=== PATIENT | female | born 1945 | race Caucasian/White ===

== ENCOUNTER 2019-01-23 22:30 | Observation (INO) | payer MEDICARE, SELFPAY ==
[2019-01-23 22:40] VITALS: O2SAT 95
[2019-01-23 22:48] VITALS: PULSE 67
--- NOTE | 2019-01-23 22:52 | PCM.HP.STD ---
Problem List (1) Chest pain Status: Acute Qualifiers: Chest pain type: unspecified Qualified Code(s): R07.9 - Chest pain, unspecified (2) Diabetes Status: Chronic Qualifiers: Diabetes mellitus type: type 2 (3) Hypertension Status: Chronic (4) Hyperlipidemia Status: Chronic History of Present Illness Date of Admission: 01/23/19 Chief Complaint: chest pain The patient is a 73 year old female patient with a significant past medical history of diabetes for 20 years, hypertension, hyperlipidemia. Patient presented with chest pain that radiated to her right shoulder occurring earlier today. The pain was made worse with exertion as she was walking up the stairs and was also associated with shortness of breath. Initial troponin was negative at the [facility] emergency room. He and BMP were unremarkable as well as chest x-ray was negative. The patient states she has had a stress test in the remote past history but cannot remember when. Due to dyspnea upon exertion and associated chest pain with history of hyperlipidemia diabetes and hypertension patient will be admitted for observation and ruled out for cardiac disease. Past Medical History Past Medical History (Chronic Problems): Chronic Problems Diabetes (Chronic) Hypertension (Chronic) Hyperlipidemia (Chronic) Surgical History: no surgical history Smoking Status: Former smoker - *Family History Maternal History Items: No pertinent history Review of Systems Constitutional: Denies: Chills, Fever, Weight Change HEENT: Denies: Head Aches, Sinus Congestion, Sinus Drainage Cardiovascular: Reports: Chest Pain, Heaviness. Denies: Palpitations Respiratory: Reports: Shortness of breath upon exertion. Denies: Cough, Shortness of breath at rest, Sputum production Gastrointestinal: Denies: Abdominal Pain, Nausea, Vomiting Genitourinary: Denies: Dysuria Musculoskeletal: Denies: Joint Pain, Joint Tenderness Skin: Denies: Rash, Wounds Neurological: Denies: Numbness, Tingling, Focal weakness Psychiatric: Denies: Anxiety, Depression, Homicidal Ideations, Suicidal Ideations Hematologic/ Lymphatic: Denies: Easy Bruising, Easy Bleeding VTE Information - Inpt Only VTE Present on Admission: No VTE Mechan Device Prophylaxis: None VTE Pharm Prophylaxis ordered?: Yes Patient Problems: Active and Suspected Problems Chest pain (Acute) - Physical Exam General: Alert, Oriented x3, Cooperative HEENT: Atraumatic, Normocephalic Neck: Supple, No JVD Lungs: Clear to auscultation, Normal air movement, No rhonchi, No wheeze, No rales Cardiovascular: Regular rate, Normal S1, Normal S2, No murmurs Abdomen: Bowel Sounds Present, Soft, Non Tender Extremities: No edema Skin: No rashes Musculoskeletal: No Tenderness to Palpation of Joints or Extremities Neurological: Neuro grossly intact Psych/Mental Status: Normal Affect, Appropriate Assessment/Plan All Active Problems Chest pain (Acute) Chronic Problems Diabetes (Chronic) Hypertension (Chronic) Hyperlipidemia (Chronic) Plan 1. Chest pain rule out [place]?patient to progressive care unit cycle troponins, morphine nitro oxygen and aspirin per protocol. Nuclear exercise stress test in the morning, CBC BMP in the morning 2. diabetes?continue current medication line 3. hypertension continue home medication 4. Hyperlipidemia check fasting lipid profile maintain on statin 5. DVT prophylaxis Lovenox 40 mg subcu daily Code Visit OBSV E&M: 63485 Initial observation care L2
--- NOTE | 2019-01-23 22:56 | HP.PCM_ITS ---
Problem List (1) Chest pain Status: Acute Qualifiers: Chest pain type: unspecified Qualified Code(s): R07.9 - Chest pain, unspecified (2) Diabetes Status: Chronic Qualifiers: Diabetes mellitus type: type 2 (3) Hypertension Status: Chronic (4) Hyperlipidemia Status: Chronic History of Present Illness Date of Admission: 01/23/19 Chief Complaint: chest pain The patient is a 73 year old female patient with a significant past medical history of diabetes for 20 years, hypertension, hyperlipidemia. Patient presented with chest pain that radiated to her right shoulder occurring earlier today. The pain was made worse with exertion as she was walking up the stairs and was also associated with shortness of breath. Initial troponin was negative at the [facility] emergency room. He and BMP were unremarkable as well as chest x-ray was negative. The patient states she has had a stress test in the remote past history but cannot remember when. Due to dyspnea upon exertion and associated chest pain with history of hyperlipidemia diabetes and hypertension patient will be admitted for observation and ruled out for cardiac disease. Past Medical History Past Medical History (Chronic Problems): Chronic Problems Diabetes (Chronic) Hypertension (Chronic) Hyperlipidemia (Chronic) Surgical History: no surgical history Smoking Status: Former smoker - *Family History Maternal History Items: No pertinent history Review of Systems Constitutional: Denies: Chills, Fever, Weight Change HEENT: Denies: Head Aches, Sinus Congestion, Sinus Drainage Cardiovascular: Reports: Chest Pain, Heaviness. Denies: Palpitations Respiratory: Reports: Shortness of breath upon exertion. Denies: Cough, Shortness of breath at rest, Sputum production Gastrointestinal: Denies: Abdominal Pain, Nausea, Vomiting Genitourinary: Denies: Dysuria Musculoskeletal: Denies: Joint Pain, Joint Tenderness Skin: Denies: Rash, Wounds Neurological: Denies: Numbness, Tingling, Focal weakness Psychiatric: Denies: Anxiety, Depression, Homicidal Ideations, Suicidal Ideations Hematologic/ Lymphatic: Denies: Easy Bruising, Easy Bleeding VTE Information - Inpt Only VTE Present on Admission: No VTE Mechan Device Prophylaxis: None VTE Pharm Prophylaxis ordered?: Yes Patient Problems: Active and Suspected Problems Chest pain (Acute) - Physical Exam General: Alert, Oriented x3, Cooperative HEENT: Atraumatic, Normocephalic Neck: Supple, No JVD Lungs: Clear to auscultation, Normal air movement, No rhonchi, No wheeze, No rales Cardiovascular: Regular rate, Normal S1, Normal S2, No murmurs Abdomen: Bowel Sounds Present, Soft, Non Tender Extremities: No edema Skin: No rashes Musculoskeletal: No Tenderness to Palpation of Joints or Extremities Neurological: Neuro grossly intact Psych/Mental Status: Normal Affect, Appropriate Assessment/Plan All Active Problems Chest pain (Acute) Chronic Problems Diabetes (Chronic) Hypertension (Chronic) Hyperlipidemia (Chronic) Plan 1. Chest pain rule out [place]?patient to progressive care unit cycle troponins, morphine nitro oxygen and aspirin per protocol. Nuclear exercise stress test in the morning, CBC BMP in the morning 2. diabetes?continue current medication line 3. hypertension continue home medication 4. Hyperlipidemia check fasting lipid profile maintain on statin 5. DVT prophylaxis Lovenox 40 mg subcu daily Code Visit OBSV E&M: 31556 Initial observation care L2
[2019-01-23 22:57] VITALS: BP 126/57; PULSE 63; RESP 14; TEMP 36.9; O2SAT 97
[2019-01-23 22:58] VITALS: BP 123/61
[2019-01-23 22:59] VITALS: BMI 39.5
--- NOTE | 2019-01-23 23:29 | EKG12_ITS ---
Test Reason : AM EKG Blood Pressure : / mmHG Vent. Rate : 053 BPM Atrial Rate : 053 BPM P-R Int : 204 ms QRS Dur : 092 ms QT Int : 462 ms P-R-T Axes : 070 023 030 degrees QTc Int : 433 ms Sinus bradycardia Otherwise normal ECG When compared with ECG of 23-JAN-2019 23:15, MANUAL COMPARISON REQUIRED, DATA IS UNCONFIRMED Confirmed by YVONNE HILL, TABATHA ([id number]), greeting card editor CHIP SHEA ([id number]) on 01/31/2019 6:57:32 AM Referred By: PALOMA Confirmed By:OUMAR RUSSELL MD
[2019-01-23 23:46] VITALS: BMI 39.5
[2019-01-23 23:58] VITALS: PULSE 70
[2019-01-24] VITALS (7 sets, daily range): BP systolic 126–135; BP diastolic 55–65; PULSE 53–62; RESP 16–18; TEMP 36.6–37.1; O2SAT 96–100
[2019-01-24 00:26] LABS: Hematocrit 31.2 % (37-47); Hemoglobin 10.4 g/dl (12.0-15.0); Mean Corp Hgb Conc 33.3 g/gl (32-36); Mean Corpuscular Hgb 30.3 pg (27.0-32.0); Mean Platelet Vol. 9.9 fl (6.2-12.0); Platelet Count 167 K/mm3 (150-450); RBC Distribution Width CV 14.6 % (11.6-14.6); Red Blood Count 3.43 M/mm3 (4.2-5.4); White Blood Count 2.8 K/mm3 (4.4-11.0)
[2019-01-24 00:28] LABS: Scan Indicated on CBC? Y/N NO
[2019-01-24 01:54] LABS: Magnesium 1.8 mg/dL (1.6-2.6)
[2019-01-24 02:16] LABS: Hematocrit 30.6 % (37-47); Hemoglobin 10.2 g/dl (12.0-15.0); Mean Corp Hgb Conc 33.3 g/gl (32-36); Mean Corpuscular Hgb 30.3 pg (27.0-32.0); Mean Corpuscular Volume 90.8 fL (81-99); Mean Platelet Vol. 10.2 fl (6.2-12.0); Platelet Count 175 K/mm3 (150-450); RBC Distribution Width CV 14.7 % (11.6-14.6); RBC Distribution Width SD 47.3 fl (35.1-43.9); Red Blood Count 3.37 M/mm3 (4.2-5.4); Scan Indicated on CBC? Y/N NO; White Blood Count 3.2 K/mm3 (4.4-11.0)
[2019-01-24 02:41] LABS: Anion Gap 8 (5-15); BUN 13 mg/dL (7-18); BUN/Creat Ratio 18.9 RATIO (10-20); Calcium,Total 8.7 mg/dL (8.5-10.1); Chloride 105 mmol/L (98-107); Cholesterol 132 mg/dL (200); Creatinine, Serum 0.69 mg/dL (0.55-1.02); EST Glomerular Filtration Rate 89 mL/min (>60); Est Glom Filt Rate - Afr Amer 108 mL/min (>60); Estimated Creatinine Clearance 43.27 ml/min; Glucose 182 mg/dL (74-106); High Density Lipoprotein 33 mg/dL; Potassium 3.4 mmol/L (3.5-5.1); Sodium Level 141 mmol/L (136-145); Triglycerides 179 mg/dL; Very Low Density Lipoprotein 36 mg/dL (5-40)
--- NOTE | 2019-01-24 04:00 | EKG12_ITS ---
Test Reason : CP ADMISSION Blood Pressure : / mmHG Vent. Rate : 061 BPM Atrial Rate : 061 BPM P-R Int : 176 ms QRS Dur : 094 ms QT Int : 442 ms P-R-T Axes : 017 023 024 degrees QTc Int : 444 ms Normal sinus rhythm Normal ECG No previous ECGs available Confirmed by YVONNE HILL, TABATHA ([id number]), magazine editor CHIP SHEA ([id number]) on 01/31/2019 7:00:56 AM Referred By: PALOMA Confirmed By:OUMAR RUSSELL MD
[2019-01-24] MEDS: 0.9% NaCl Peripheral Flush Adult/Peds IV (05:43)
[2019-01-24] MEDS: Aspirin E.C. 325 MG Tablet PO (05:48)
[2019-01-24] MEDS: Losartan Potassium 50 MG Tablet PO (05:48)
[2019-01-24 06:41] LABS: Bedside Glucose 164 mg/dL (70-110)
[2019-01-24 06:55] LABS: International Normalized Ratio 1.1; Partial Thromboplast Time 28.8 Seconds (24.1-36.2); Prothrombin Time (Protime)PT. 13.5 SECONDS (11.7-14.9)
--- NOTE | 2019-01-24 11:22 | STRESSREP ---
Stress Test Report Date: 01-24-19 Procedure: Exercise tolerance test/imaging study Indications: Chest pain Consent: Per the patient Procedure: The patient exercised on a Herson protocol for 3 minutes and 15 seconds completing Stage I and 15 seconds of Stage II achieving a peak heart rate of 144 bpm (97 % predicted maximal heart rate) with a peak blood pressure 184/89 mmHg and a peak MET capacity of 4 METs. The baseline ECG demonstrated normal sinus rhythm. The peak exercise ECG demonstrated somatic/motion artifact with no obvious ECG changes. There was a rare PVC during recovery. The functional capacity was considered decreased. There was no complaint of chest discomfort during exercise or recovery. The examination was discontinued secondary to dyspnea. Impression: 1. Technically adequate (percent predicted maximal heart rate greater than 85%) exercise tolerance test 2. Peak exercise ECG demonstrated somatic/motion artifact with no obvious ECG changes 3. There was a rare PVC during recovery 4. Nuclear images pending Myocardial perfusion imaging study: Technique: The patient was injected with 14.2 mCi of technetium 99m Cardiolite and subsequently rest SPECT Cardiolite nuclear imaging was obtained in the horizontal long, vertical long, and short axis views. The patient exercised on a Herson protocol for 3 minutes and 15 seconds completing Stage I and 15 seconds of Stage II achieving a peak heart rate of 144 bpm (97 % predicted maximal heart rate) with a peak blood pressure 184/89 mmHg and a peak MET capacity of 4 METs. The patient was injected with 44.3 mCi of technetium 99m Cardiolite and subsequently stress SPECT Cardiolite nuclear imaging study was obtained in the horizontal long, vertical long, and short axis views. A gated Cardiolite study at peak stress was obtained. Interpretation: Rest and stress SPECT Cardiolite nuclear imaging status post realignment, normalization, and attenuation correction, demonstrates the appearance of a small area of subtle diminished tracer uptake near the apical segments without significant change between rest and stress. There is end systolic thickening and brightening. The gated Cardiolite study demonstrates myocardial thickening and inward wall motion. The reported LVEF is 83 %. Impression: 1. Rest and stress SPECT Cardiolite nuclear imaging demonstrate myocardial perfusion changes appearing compatible defects of physiologic apical thinning with no myocardial perfusion changes considered diagnostic for associated stress-induced myocardial ischemia. 2. The gated Cardiolite study reports an LVEF of 83 %. This note was generated with [employer] software. It may contain incorrect words, spelling, and punctuation that were not noted in checking the note before signing.
[2019-01-24 11:46] LABS: Bedside Glucose 213 mg/dL (70-110)
--- NOTE | 2019-01-24 13:40 | CASEMGMT ---
RN EDWIGE ASPHALT ROLLER OPERATOR CM to room to meet with patient for initial transition planning/care coordination assessment. ANDREW GIBBONS introduced self and role at [facility]. Pt voices understanding and consents to assessment at this time. Pt resting in bed in no distress at this time. and other family members @ bedside. Pt agreeable to them being present during assessment. Pt is A/O at this time and answers all questions appropriately. Care providers, pharmacy, and demographics verified/updated at this time. PCP: Dr Adore Antoine in [place] Specialists: [employer] Receiving Clerk: Dr Guzmán. Mumps Developer: Dr Shanna Gooden in [place] Preferred Pharmacy: [facility] Insurance: [employer] Prescription Benefit: Yes Living Will/HPOA: Has both LW and HPOA, who is her , Michael Zavaleta. LNOK: Living Arrangements: Lives in one-story home w/3 steps to enter w/rails. Independent with all ADL's. Transportation: Pt does not drive. States her daughter or provide transportation and has no concerns. DME: States has the following DME: grab bars, hand-held shower, and CPAP she got through [employer] in [place]. Has a cane available but does not use it. Pt states no need for further DME at this time. HHC/SNF: No history of either. No needs identified. Pt wishes to return home and states has no concerns with going home at time of discharge. CM to follow for for any further discharge planning/needs. Pt voices no further concerns/needs at this time. Advised pt to ask for CM if any further questions/concerns/needs arise. Voices understanding. PLAN: Home w/family support and discharge plans in place. Percy SUTTON RN, CM
--- NOTE | 2019-01-24 14:47 | DCINST_ITS ---
- Discharge Diagnoses Current Active Problems: Current Active and Chronic Problems Chest pain (Acute) Diabetes (Chronic) Hypertension (Chronic) Hyperlipidemia (Chronic) You will use the following diet at home:: Calorie/Carbohydrate Controlled (specify 1200, 1400, etc), Cardiac Your food should be the consistency of: Regular Your liquids should be the consistency of: Regular/Thin Discharge Activity: Return to Normal Activity Call your doctor if you observe: Fever of 101 or Higher, Shortness of breath, Dizziness, Fainting spells, Chest pain, Calf discomfort Additional Instructions: 1. The stress test shows that you have no evidence of significant coronary artery disease. Your heart squeezes normally and there was no problem with the rhythm of your heart while you were being monitored. I do not think the chest pain is related to the heart. There are many causes of chest pain and these include but are not limited to muscle strain or spasm, reflux, gallbladder disease, blood clots in the lungs, asthma, anxiety etc. You are actually not on Prilosec you are on Prevacid which is a similar medication. Prevacid can be used once a day so please continue this. 2. Your blood press ure increased significantly with exercise and you were only able to walk for about 3 minutes. I would recommend you try and lose some weight and start walking everyday......work up to 30 minutes a day. If you need help with weight loss the dieticians at the [facility] hqave a program called [employer] [facility] that helps people. you would need a referral from your primary care doctor. Losing weight will also help with joint pains. 3. You are anemic and white blood cell count is low. The anemia may be due to rheumatoid and the low white blood cell count may be related to rheumatoid and Methotrexate. I would talk about this with Dr. Beard. Pending Tests on Discharge: none Allergies/Adverse Reactions: Allergies Iodinated Contrast- Oral and IV Dye [CONTRASTS] Allergy (Verified 01/23/19 23:12) Angioedema procaine [From Novocain] Allergy (Verified 01/23/19 23:12) Other Blacks out valdecoxib [From Bextra] Allergy (Verified 01/23/19 23:12) Unknown acetaminophen [From Vicodin] Adverse Reaction (Verified 01/23/19 23:12) Itching hydrocodone [From Vicodin] Adverse Reaction (Verified 01/23/19 23:12) Itching latex Adverse Reaction (Verified 01/24/19 04:57) Other blisters quinapril [From Accupril] Adverse Reaction (Verified 01/23/19 23:12) Other Cough Medications to take at Discharge Amlodipine [Norvasc] 10 mg PO DAILY 01/23/19 Atorvastatin Calcium 40 mg PO DAILY 01/23/19 Escitalopram Oxalate [Lexapro] 10 mg PO DAILY 01/23/19 Folic Acid 2 mg PO DAILY@0800 01/23/19 Glimepiride [Amaryl] 4 mg PO DAILY 01/23/19 Lansoprazole [Prevacid] 30 mg PO DAILY 01/23/19 Losartan Potassium 50 mg PO DAILY 01/23/19 Methotrexate 12.5 mg PO Q7D 01/23/19 Metoprolol Tartrate 25 mg PO BID 01/23/19 Oxybutynin [Ditropan] 5 mg PO TID PRN 01/23/19 Pioglitazone [Actos] 30 mg PO DAILY 01/23/19 Primary Care Physician: Adore Antoine [Primary Care Provider] - Please follow up with your Primary Care Physician in: 5-7 days Test Results: Test results from this visit will be discussed in further detail at your follow- up appointment, if applicable. Please Follow Up With: Norma Beard MD When: as previously scheduled Proposed Discharge Date: 01/24/19
--- NOTE | 2019-01-24 15:01 | DS.PCM_ITS ---
Discharge Date and Diagnosis Date of Admission: 01/23/19 Date of Discharge: 01/24/19 - Primary Discharge Diagnosis Active and Suspected Problems Non-cardiac chest pain (Acute) Hypokalemia (Acute) Leukopenia (Acute) Normochromic anemia (Acute) - Secondary Discharge Diagnosis Chronic Problems Obesity (BMI 30-39.9) (Chronic) Diabetes mellitus type 2 in obese (Chronic) Rheumatoid arthritis (Chronic) Hypertension (Chronic) Hyperlipidemia (Chronic) Hospital Course and Treatment None Operations: None Procedures: Stress test Summary of Care Provided: The patient is a 73 year old F with a past medical history of diabetes mellitus type 2, hypertension, hyperlipidemia and morbid obesity who presented to the emergency department at [facility] on 01/23/2019 complaining of chest pain. The pain was made worse by exertion and she also had shortness of breath. Initial troponin was less than 0.015 at the [place] emergency department. Chest x-ray showed no infiltrates, pleural effusions or pulmonary vascular congestion. She was transferred from [facility] to [facility] for observation and stress test if serial cardiac enzymes were negative. Lab work at [facility] was significant for a low white blood cell count at 2.8, low hemoglobin at 10.4. Platelets were within normal limits. Potassium was mildly decreased at 3.4 and was supplemented. Cardiac enzymes were negative x3 and the patient had a stress test on 01/24/2019 which was negative for myocardial perfusion changes that would be considered diagnostic for stress-induced myocardial ischemia. The gated nuclear ejection fraction was 83%. She had poor exercise tolerance with the stress test. Weight loss and a walking program were recommended. We also recommended she consider attending the [facility] program at [facility] that is managed by the equip maint eng, she was told she would need a referral from her PCP. She was instructed to follow- up with her primary care physician for further evaluation of anemia and leukopenia. We have no prior labs on her and this may be chronic. She takes MTX for RA. PHYSICAL EXAM: GENERAL: alert, oriented X 3, Cooperative, NAD ORAL: moist mucosa, no mucosal lesions NECK: No JVD, supple, trachea midline LUNGS: CTA, symmetric chest expansion HEART: RRR, Normal S1 and S2, no rub, no gallop ABDOMEN: soft, NT, ND, BS present, no guarding with palpation, obese EXTREMITIES: no edema, no cyanosis, no calf tenderness SKIN: No rashes, no breakdown NEUROLOGIC: no focal neurologic deficits PSYCH: appropriate, normal affect, pleasant This note was generated with [employer] dictation software. It may contain incorrect words, spelling, and punctuation that were not noted in checking the note before signing. - Physical Exam Vital Signs Temp Pulse Resp BP Pulse Ox 97.9 F 53 L 16 133/61 H 96 01/24/19 11:40 01/24/19 11:40 01/24/19 11:40 01/24/19 11:40 01/24/19 11:40 Oxygen Flow Rate (L/min) 2 Oxygen Delivery Method Room Air Weight: 230 lb 6.129 oz Body Mass Index (BMI) 39.5 Intake and Output for Last 24 Hours 01/22/19 01/23/19 01/24/19 23:59 23:59 23:59 Intake Total 600 / 600 Output Total 300 / 300 Balance 300 / 300 Laboratory Tests Past 24 Hrs 01/24/19 01/24/19 01/24/19 00:17 00:17 02:00 WBC 2.8 L 3.2 L RBC 3.43 L 3.37 L Hgb 10.4 L 10.2 L Hct 31.2 L 30.6 L MCV 91.0 90.8 MCH 30.3 30.3 MCHC 33.3 33.3 RDW 14.6 14.7 H RDW Differential 47.0 H 47.3 H Plt Count 167 175 MPV 9.9 10.2 PT INR APTT Sodium Potassium Chloride Carbon Dioxide Anion Gap BUN Creatinine Estim Creat Clear Calc Est GFR (MDRD) Af Amer Est GFR (MDRD) Non-Af BUN/Creatinine Ratio Glucose Calcium Magnesium 1.8 Troponin I < 0.015 Triglycerides Cholesterol LDL Cholesterol VLDL Cholesterol HDL Cholesterol 01/24/19 01/24/19 01/24/19 02:00 02:00 05:38 WBC RBC Hgb Hct MCV MCH MCHC RDW RDW Differential Plt Count MPV PT INR APTT Sodium 141 Potassium 3.4 L Chloride 105 Carbon Dioxide 28.0 Anion Gap 8 BUN 13 Creatinine 0.69 Estim Creat Clear Calc 43.27 Est GFR (MDRD) Af Amer 108 Est GFR (MDRD) Non-Af 89 BUN/Creatinine Ratio 18.9 Glucose 182 H Calcium 8.7 Magnesium Troponin I < 0.015 < 0.015 Triglycerides 179 Cholesterol 132 LDL Cholesterol 63 VLDL Cholesterol 36 HDL Cholesterol 33 L 01/24/19 06:36 WBC RBC Hgb Hct MCV MCH MCHC RDW RDW Differential Plt Count MPV PT 13.5 INR 1.1 APTT 28.8 Sodium Potassium Chloride Carbon Dioxide Anion Gap BUN Creatinine Estim Creat Clear Calc Est GFR (MDRD) Af Amer Est GFR (MDRD) Non-Af BUN/Creatinine Ratio Glucose Calcium Magnesium Troponin I Triglycerides Cholesterol LDL Cholesterol VLDL Cholesterol HDL Cholesterol POC Glucose 01/24/19 01/24/19 11:33 06:35 POC Glucose 213 H 164 H Discharge Activity: Return to Normal Activity Call your doctor if you observe: Fever of 101 or Higher, Shortness of breath, Dizziness, Fainting spells, Chest pain, Calf discomfort Home Medications: Medications to take at Discharge Amlodipine [Norvasc] 10 mg PO DAILY 01/23/19 Atorvastatin Calcium 40 mg PO DAILY 01/23/19 Escitalopram Oxalate [Lexapro] 10 mg PO DAILY 01/23/19 Folic Acid 2 mg PO DAILY@0800 01/23/19 Glimepiride [Amaryl] 4 mg PO DAILY 01/23/19 Lansoprazole [Prevacid] 30 mg PO DAILY 01/23/19 Losartan Potassium 50 mg PO DAILY 01/23/19 Methotrexate 12.5 mg PO Q7D 01/23/19 Metoprolol Tartrate 25 mg PO BID 01/23/19 Oxybutynin [Ditropan] 5 mg PO TID PRN 01/23/19 Pioglitazone [Actos] 30 mg PO DAILY 01/23/19 Primary Care Physician: Adore Antoine [Primary Care Provider] - Please follow up with your Primary Care Physician in: 5-7 days Please Follow Up With: Norma Beard MD When: as previously scheduled Disposition: Home Minutes spent on discharge:: 30 Patient Condition:: Good Medical Necessity - Tobacco Use Smoking Status: Former smoker Tobacco Use: Non-smoker Meaningful Use Info Meaningful Use Diagnoses (Choose all that apply): None applicable Code Visit OBSV E&M: 26025 Observation care discharge
== END 2019-01-24 15:23 | disposition home or self-care (01) ==
PROVIDERS: Admitting Provider Family Medicine; Family Provider Internal Medicine; PCP Internal Medicine; Visit Provider Family Medicine
DX: R07.89 Other chest pain (principal); E87.6 Hypokalemia; D72.819 Decreased white blood cell count, unspecified; D64.9 Anemia, unspecified; I10 Essential (primary) hypertension; E78.5 Hyperlipidemia, unspecified; E11.9 Type 2 diabetes mellitus without complications; R06.09 Other forms of dyspnea; E66.9 Obesity, unspecified; Z87.891 Personal history of nicotine dependence; Z79.899 Other long term (current) drug therapy; Z79.84 Long term (current) use of oral hypoglycemic drugs; Z68.39 Body mass index [BMI] 39.0-39.9, adult; Z71.3 Dietary counseling and surveillance
CPT/HCPCS: 36415; 78452; 80048; 80061; 82962; 83735; 84484; 85027; 85610; 85730; 93005; 93017; 97802; 99218; A9500; A4216; G0378; G0379